=== PATIENT | male | born 1970 | race Caucasian/White ===

== ENCOUNTER → 2017-03-03 | Outpatient (CLI) | payer OTHER ==
--- NOTE | 2017-03-03 13:10 | KCIC ---
PROCEDURE Three-view thoracic spine and PA chest with left rib series HISTORY Upper left-sided back pain for 5 months, upper left chest pain and left rib pain for 5 months, after injury. COMPARISON FINDINGS Thoracic spine The minimal S-shaped thoracic scoliosis. Limited visibility of upper thoracic vertebrae on the lateral view. No definite acute fracture or bone destruction. No significant subluxation. No paraspinal soft tissue swelling is suggested. Minimal marginal osteophytes. PA chest with left ribs Cardiac silhouette not enlarged. No evidence of pneumothorax No focal airspace consolidation. No evidence of pleural effusion. No evidence of displaced left rib fracture. IMPRESSION 1. No acute findings of the thoracic spine. Consider MRI if further evaluation is warranted. 2. No acute findings in the chest. 3. No evidence of displaced left rib fracture. Electronically signed by: Adonis Arce MD (March 03, 2017 13:08:22)
== END | disposition home or self-care (01) ==
LOC: KCIC 11:44
PROVIDERS: ATTEND Family Medicine
DX: M54.6 Pain in thoracic spine (principal); R07.81 Pleurodynia
CPT/HCPCS: 71101; 72072

== ENCOUNTER → 2017-10-05 | Outpatient (CLI) | payer BC ==
--- NOTE | 2017-10-05 15:59 | KCIC ---
Indication: Right-sided chest pain. Time of exam 3:43 PM No prior studies are available for comparison. FINDINGS: The heart size is normal. The lungs are clear. No pleural effusion or pneumothorax is identified. The pulmonary vascularity is normal. IMPRESSION: No acute abnormality detected. Electronically signed by: Kirt Oliva MD (10/05/2017 3:56 PM) [id number]
== END | disposition home or self-care (01) ==
LOC: KCIC 15:28
PROVIDERS: ATTEND Family Medicine
DX: R07.9 Chest pain, unspecified (principal)
CPT/HCPCS: 71020

== ENCOUNTER → 2017-10-14 | Outpatient (CLI) | payer OTHER, BC ==
--- NOTE | 2017-10-14 15:16 | RAD ---
Two-view skull series History: Clearance for MRI. History of retinal detachment. Findings: No metallic foreign body is seen overlying either orbit. The paranasal sinuses are clear. IMPRESSION: No metallic foreign body is seen within either orbit. The patient is cleared for MRI.
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
== END | disposition home or self-care (01) ==
LOC: MRI 14:32
PROVIDERS: ATTEND Family Medicine
DX: M51.34 Other intervertebral disc degeneration, thoracic region (principal); H33.8 Other retinal detachments; Y92.410 Unspecified street and highway as the place of occurrence of the external cause
CPT/HCPCS: 70250; 72146

== ENCOUNTER → 2021-12-17 | Outpatient (CLI) | payer BC ==
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
== END ==
LOC: KCIC MRI 15:14
PROVIDERS: ATTEND Family Medicine
DX: M17.11 Unilateral primary osteoarthritis, right knee (principal); M25.861 Other specified joint disorders, right knee; M25.561 Pain in right knee
CPT/HCPCS: 73721

== ENCOUNTER → 2022-02-07 | Outpatient (CLI) | payer BC ==
--- NOTE | 2022-02-07 15:47 | KCIC ---
History: Tendinitis pain with 1 movement. AP, oblique and lateral views of the left elbow were obtained. Comparison: none. There is no fracture, dislocation, or joint effusion seen. No significant degenerative changes. Impression: 1. Negative exam of the left elbow. Electronically signed by: Geovanny Jang MD (02/07/2022 3:45 PM) [facility]
== END ==
LOC: KCIC 15:28
PROVIDERS: ATTEND Family Medicine
DX: M77.8 Other enthesopathies, not elsewhere classified (principal)
CPT/HCPCS: 73080